=== PATIENT | male | born 1995 | race Two or more races ===

== ENCOUNTER 2017-01-29 18:27 | Emergency (ER) | payer SELFPAY ==
[~2017-01-29] VITALS: Ht 172.7 cm; Wt 131.5 kg
[2017-01-29 18:47] VITALS: BP 179/105
--- NOTE | 2017-01-29 21:20 | NUR ---
PT PRESENTS TO ER FOR EVALUATION OF MAYLIN GREAT TOES INGROWN TOENAILS. PT DENIES ANY OTHER MEDICAL HX.DENIES N/V/D; SKIN IS PINK/WARM/DRY; AAOX4 WITH EVEN AND STEADY GAIT; LUNGS CLEAR BL; HR EVEN AND REGULAR; PT DENIES ANY FEVER, CP, SOB, OR COUGH AT THIS TIME; PATIENT STATES PAIN OF 10/10 AT THIS TIME; VSS; PATIENT POSITIONED FOR COMFORT; HOB ELEVATED; BEDRAILS UP X2; BED DOWN. ER MD MADE AWARE OF PT STATUS.
--- NOTE | 2017-01-29 21:20 | NUR ---
PT TAKEN TO BED 8
--- NOTE | 2017-01-29 21:24 | NUR ---
Dr. Bosch evaluating patient at bedside.
[2017-01-29] MEDS ORDERED: NEOMYCIN/POLYMYXIN/BACITRACIN 0.9 GM/1 PKT TP ONE (21:31)
[2017-01-29] MEDS ORDERED: LIDOCAINE 1% ED 50 ML ONE (21:31)
[2017-01-29 22:13] VITALS: BP 162/92
--- NOTE | 2017-01-29 22:14 | NUR ---
Patient discharged with v/s stable. Written and verbal after care instructions given and explained. Patient alert, oriented and verbalized understanding of instructions. Ambulatory with steady gait. All questions addressed prior to discharge. ID band removed. Patient advised to follow up with PMD. Rx of MOTRIN AND BACTRIM given. Patient educated on indication of medication including possible reaction and side effects. Opportunity to ask questions provided and answered.
== END 2017-01-29 22:14 | disposition home or self-care (01) ==
LOC: MED 18:27
DX: L60.0 Ingrowing nail (principal)
CPT/HCPCS: 11730; 11732; 99284; J2001